=== PATIENT | male | born 1935 | race Caucasian/White ===

== ENCOUNTER → 2016-03-25 | Outpatient (REF) | payer MEDICARE ==
[~2016-03-25] MED LIST: ACTO45TA OR; DOXAZOSIN PO; FERR325T OR; GLIPPOW PO; GLUC1000 OR; HYDR25TA6 OR; LIPI10TA OR; MAGN500T2 OR
[2016-03-25 17:33] LABS: ALBUMIN 3.5 GM/DL (3.2-5.2); ALBUMIN/GLOBULIN RATIO 1.09 (1.00-1.93); BILIRUBIN,TOTAL 1.7 MG/DL (0.2-1.0); CALCIUM LEVEL 9.1 MG/DL (8.8-10.2); CREATININE FOR GFR 1.45 MG/DL (0.70-1.30); POTASSIUM SERUM 4.7 MEQ/L (3.5-5.1); TOTAL PROTEIN 6.7 GM/DL (6.4-8.2)
== END ==
LOC: M SFHCCAPE 08:16
PROVIDERS: ATTEND Physician Assistant
DX: E11.9 Type 2 diabetes mellitus without complications (principal); Z12.5 Encounter for screening for malignant neoplasm of prostate
CPT/HCPCS: 80053; 80061; 82043; 83036; G0103

== ENCOUNTER 2017-11-27 15:28 | Emergency (ER) | payer MEDICARE ==
[2017-11-27] MEDS: EPINEPHrine 1MG/10ML SYRINGE 1.5IN IV ×4 (15:34→15:54)
[2017-11-27] MEDS: SODIUM BICARBONATE 8.4% INJ 50 ML SYRINGE IV (15:45)
[2017-11-27] MEDS ORDERED: EPINEPHrine 1MG/10ML SYRINGE 1.5IN (16:36)
[2017-11-27] MEDS ORDERED: SODIUM BICARBONATE 8.4% INJ 50 ML SYRINGE (16:36)
[2017-11-30 12:28] LABS: BEDSIDE GLUCOSE 279 MG/DL (83-110)
== END 2017-11-27 18:50 | disposition expired ==
LOC: M ED 15:28
DX: I21.19 ST elevation (STEMI) myocardial infarction involving other coronary artery of inferior wall (principal); I46.9 Cardiac arrest, cause unspecified; E11.9 Type 2 diabetes mellitus without complications; E78.5 Hyperlipidemia, unspecified; R01.1 Cardiac murmur, unspecified; R94.31 Abnormal electrocardiogram [ECG] [EKG]; Z79.899 Other long term (current) drug therapy; Z79.84 Long term (current) use of oral hypoglycemic drugs
CPT/HCPCS: 93005